=== PATIENT | male | born 1990 | race Caucasian/White ===

== ENCOUNTER 2017-02-08 12:07 | Emergency (ER) | payer SELFPAY ==
--- NOTE | 2017-02-08 12:23 | ER Document Report ---
HPI - HPI Patient complains to provider of: Right toe injury Onset: Yesterday Onset/Duration: Sudden Quality of pain: Throbbing Severity: Severe Pain Level: 5 Context: Patient states he jumped into the shallow end of pool injuring his right toes. occurred yesterday, patient is able to bear some weight on his foot but complains of pain. Associated Symptoms: None Exacerbated by: Movement, Walking Relieved by: Denies Similar symptoms previously: No Recently seen / treated by doctor: No - ROS ROS below otherwise negative: Yes Systems Reviewed and Negative: Yes All other systems reviewed and negative - CONSTITUTIONAL Constitutional: DENIES: Fever - EENT EENT: DENIES: Congestion - NEURO Neurology: DENIES: Headache - CARDIOVASCULAR Cardiovascular: DENIES: Chest pain - RESPIRATORY Respiratory: DENIES: Trouble Breathing - GASTROINTESTINAL Gastrointestinal: DENIES: Abdominal Pain - URINARY Urinary: DENIES: Dysuria - MUSCULOSKELETAL Musculoskeletal: REPORTS: Extremity pain - Right foot - DERM Skin Color: Ecchymosis Skin Problems: None <JULITA AVILA - Last Filed: 02/08/17 12:56> Past Medical History - General Information source: Patient - Social History Smoking Status: Current Every Day Smoker Cigarette use (# per day): Yes Frequency of alcohol use: Occasional Drug Abuse: None Lives with: Family Family History: DM, Hyperlipidemia, Hypertension, Malignancy Patient has suicidal ideation: No Patient has homicidal ideation: No - Medical History Medical History: Negative Surgical Hx: Negative - Immunizations Immunizations up to date: No Hx Diphtheria, Pertussis, Tetanus Vaccination: Yes <JULITA AVILA - Last Filed: 02/08/17 12:56> Vertical Provider Document - CONSTITUTIONAL Agree With Documented VS: Yes Exam Limitations: No Limitations - INFECTION CONTROL TRAVEL OUTSIDE OF THE [place] IN LAST 30 DAYS: No - HEENT HEENT: Atraumatic, Normocephalic - RESPIRATORY Respiratory: Breath Sounds Normal, No Respiratory Distress O2 Sat by Pulse Oximetry: 100 - CARDIOVASCULAR Cardiovascular: Regular Rate, Regular Rhythm - MUSCULOSKELETAL/EXTREMETIES Musculoskeletal/Extremeties: Tender, Edema, Eccymosis - Right fourth and fifth toes. - NEURO Level of Consciousness: Awake - DERM Integumentary: Warm, Dry <JULITA AVILA - Last Filed: 02/08/17 12:56> Course - Re-evaluation Re-evalutation: 02/08/17 12:57 X-rays showed fracture to proximal right fifth toe. This was discussed with patient. - Vital Signs Vital signs: Temp Pulse Resp BP Pulse Ox 97.5 F 98 18 157/88 H 100 02/08/17 12:10 02/08/17 12:10 02/08/17 12:10 02/08/17 12:10 02/08/17 12:10 <JULITA AVILA - Last Filed: 02/08/17 12:56> - Vital Signs Vital signs: Temp Pulse Resp BP Pulse Ox 97.5 F 85 16 146/88 H 99 02/08/17 12:10 02/08/17 13:23 02/08/17 13:23 02/08/17 13:23 02/08/17 13:23 <LUIS ALBERTO MARTINEZ - Last Filed: 02/09/17 14:38> Procedures - Immobilization Right Foot Pre-Proc Neuro Vasc Exam: Normal Immobilizer type: Post-op shoe Performed by: PCT Post-Proc Neuro Vasc Exam: Normal Alignment checked and good: Yes <JULITA AVILA - Last Filed: 02/08/17 12:56> Discharge <JULITA AVILA - Last Filed: 02/08/17 12:56> <LUIS ALBERTO MARTINEZ - Last Filed: 02/09/17 14:38> - Discharge Clinical Impression: Toe fracture, right Qualifiers: Encounter type: initial encounter Toe: lesser toe Fracture type: closed Phalanx : proximal Fracture alignment: nondisplaced Qualified Code(s): S92.514A - Nondisplaced fracture of proximal phalanx of right lesser toe(s), initial encounter for closed fracture Condition: Good Disposition: HOME, SELF-CARE Additional Instructions: Ice and elevate foot tylenol or Motrin as needed for pain, [place] as needed Follow-up with orthopedic for further evaluation of fractured toe return as needed Prescriptions: Hydrocodone/Acetaminophen [[place] 5-325 mg Tablet] 1 tab PO PRN PRN #15 tablet PRN Reason: Forms: Return to Work Referrals: BELINDA SAMAYOA MD [ACTIVE STAFF] - Follow up as needed
[2017-02-08 13:27] VITALS: BP 146/88
--- NOTE | 2017-02-08 13:48 | RADIOLOGY REPORT (SQ) ---
EXAM DESCRIPTION: FOOT RIGHT COMPLETE COMPLETED DATE/TIME: 02/08/2017 12:45 pm REASON FOR STUDY: injury COMPARISON: None. NUMBER OF VIEWS: Three views. TECHNIQUE: AP, lateral and oblique radiographic images acquired of the right foot. LIMITATIONS: None. FINDINGS: MINERALIZATION: Normal. BONES: There is a transverse fracture of the base of the 5th proximal phalanx. JOINTS: No effusions. SOFT TISSUES: No soft tissue swelling. No foreign body. OTHER: No other significant finding. IMPRESSION: There is a fracture of the at the base of the 5th proximal phalanx. TECHNICAL DOCUMENTATION: JOB ID: [id number] [employer]- All Rights Reserved
== END 2017-02-08 13:24 | disposition home or self-care (01) ==
LOC: ER 12:07
DX: S92.514A Nondisplaced fracture of proximal phalanx of right lesser toe(s), initial encounter for closed fracture (principal); X58.XXXA Exposure to other specified factors, initial encounter; Y93.11 Activity, swimming; F17.210 Nicotine dependence, cigarettes, uncomplicated
CPT/HCPCS: 99283

== ENCOUNTER 2018-03-05 11:20 | Inpatient (IN) | payer SELFPAY ==
[2018-03-05] MEDS ORDERED: KETOROLAC TROMETHAMINE INJ/PF 30 MG/1 ML SDV IV ONE (11:49)
[2018-03-05] MEDS ORDERED: NORMAL SALINE 1000 ML 1,000 ML IV ONE ×3 (11:49→15:43)
[2018-03-05] MEDS ORDERED: ONDANSETRON 4 MG TAB.RAPDIS SL ONE (11:49)
--- NOTE | 2018-03-05 12:05 | ER Document Report ---
ED Medical Screen (RME) - General Chief Complaint: Abdominal Pain Stated Complaint: ABDOMINAL PAIN Time Seen by Provider: 03/05/18 11:38 Mode of Arrival: Ambulatory Information source: Patient TRAVEL OUTSIDE OF THE [place] IN LAST 30 DAYS: No - HPI Patient complains to provider of: Abdominal pain with nausea and vomiting Onset: Yesterday Onset/Duration: Gradual Quality of pain: Achy, Cramping Severity: Moderate Pain Level: 3 Associated Symptoms: Nausea, Vomiting Exacerbated by: Food Relieved by: Denies Similar symptoms previously: No Recently seen / treated by doctor: No Notes: 03/05/18 12:04 Patient is a 27-year-old male with a history of daily alcohol consumption approximately 40 beers daily, presenting to the emergency room complaining of epigastric and right lower quadrant abdominal pain with nausea and vomiting that started yesterday, has a history of hernia repair when he was a baby, otherwise no abdominal surgeries, no sick contacts, no questionable food consumption at onset - Related Data Allergies/Adverse Reactions: No Known Allergies Allergy (Verified 03/05/18 11:22) Past Medical History - Social History Chew tobacco use (# tins/day): No Frequency of alcohol use: Heavy Drug Abuse: Marijuana Renal/ Medical History: Denies: Hx Peritoneal Dialysis - Immunizations Immunizations up to date: No Hx Diphtheria, Pertussis, Tetanus Vaccination: Yes Physical Exam - Vital signs Vitals: Temp Pulse Resp BP Pulse Ox 97.6 F 88 16 156/97 H 100 03/05/18 11:29 03/05/18 11:29 03/05/18 11:29 03/05/18 11:29 03/05/18 11:29 Course - Vital Signs Vital signs: Temp Pulse Resp BP Pulse Ox 97.6 F 88 16 156/97 H 100 03/05/18 11:29 03/05/18 11:29 03/05/18 11:29 03/05/18 11:29 03/05/18 11:29
[2018-03-05 12:38] LABS: HEMATOCRIT 48.3 % (37.9-51.0); HEMOGLOBIN 16.7 g/dL (13.5-17.0); MEAN CORPUSCULAR HEMOGLOBIN 30.7 pg (27.0-33.4); MEAN CORPUSCULAR HGB CONC 34.6 g/dL (32.0-36.0); MEAN CORPUSCULAR VOLUME 89 fl (80-97); PLATELET COUNT 350 10^3/uL (150-450); RED BLOOD COUNT 5.43 10^6/uL (4.35-5.55); RED CELL DISTRIBUTION WIDTH 12.8 % (11.5-14.0); WHITE BLOOD COUNT 13.6 10^3/uL (4.0-10.5)
[2018-03-05 12:42] LABS: APPEARANCE,URINE SLIGHTLY-CLOUDY; BILIRUBIN,URINE NEGATIVE (NEGATIVE); GLUCOSE, URINE NEGATIVE (NEGATIVE); KETONES,URINE 20 mg/dL (NEGATIVE); LEUKOCYTE ESTERASE,URINE NEGATIVE (NEGATIVE); NITRITE,URINE NEGATIVE (NEGATIVE); PROTEIN,URINE 100 mg/dL (NEGATIVE); URINE SPECIFIC GRAVITY 1.031
[2018-03-05 12:44] LABS: COLOR,URINE DARK YELLOW
[2018-03-05 13:02] LABS: ALANINE AMINOTRANSFERASE 81 U/L (21-72); ALKALINE PHOSPHATASE 99 U/L (38-126); ANION GAP 18 (5-19); ASPARTATE AMINO TRANSFERASE 55 U/L (17-59); BILIRUBIN,DIRECT 0.4 mg/dL (0.0-0.4); BILIRUBIN,TOTAL 1.3 mg/dL (0.2-1.3); BLOOD UREA NITROGEN 13 mg/dL (7-20); CALCIUM 10.3 mg/dL (8.4-10.2); CARBON DIOXIDE 28 mmol/L (22-30); CHLORIDE 98 mmol/L (98-107); GLUCOSE 125 mg/dL (75-110); TOTAL PROTEIN 9.3 g/dL (6.3-8.2)
[2018-03-05 13:13] LABS: ABSOLUTE MONOCYTES # (MANUAL) 0.8 10^3/uL (0.1-1.4); ABSOLUTE NEUTROPHILS# (MANUAL) 11.8 10^3/uL (1.7-8.2); BASOPHILS % (MANUAL) 0 % (0-2); EOSINOPHILS % (MANUAL) 0 % (0-6); LYMPHOCYTES % (MANUAL) 7 % (13-45); MONOCYTES % (MANUAL) 6 % (3-13); PLATELET COMMENT ADEQUATE; RBC MORPHOLOGY COMMENT NORMO-CYTIC/CHROMIC; SEGMENTED NEUTROPHILS % (MAN) 87 % (42-78); TOTAL CELLS COUNTED 100; TOXIC GRANULATION SLIGHT; TOXIC VACUOLATION PRESENT
[2018-03-05] MEDS ORDERED: HYDROMORPHONE HCL INJ/PF 2 MG/ML AMPULE IV ONE ×2 (14:11→16:05)
[2018-03-05] MEDS ORDERED: METOCLOPRAMIDE HCL INJ/PF 10 MG/2 ML SDV IV ONE (14:11)
--- NOTE | 2018-03-05 14:11 | ER Document Report ---
ED GI/ - General Mode of Arrival: Ambulatory Information source: Patient TRAVEL OUTSIDE OF THE [place] IN LAST 30 DAYS: No <DARRIUS BAKER - Last Filed: 03/05/18 14:49> <TEENA FELIZ - Last Filed: 03/05/18 16:11> - General Chief Complaint: Abdominal Pain Stated Complaint: ABDOMINAL PAIN Time Seen by Provider: 03/05/18 11:38 Notes: 27-year-old male with history of EtOH abuse that presents today with complaints of epigastric abdominal pain. Patient states he has had symptoms like this in the past but not as severe as today. Patient states he drinks a "couple of 40 ounce beers a day". Patient also admits to smoking marijuana. Patient states his pain began yesterday and became worse today. (DARRIUS BAKER) The patient has been vomiting this morning. At this time he does have some shakes, difficult to tell if it is due to his pain or EtOH withdrawal. (TEENA FELIZ) - Related Data Allergies/Adverse Reactions: No Known Allergies Allergy (Verified 03/05/18 11:22) Past Medical History - General Information source: Patient - Social History Smoking Status: Current Every Day Smoker Cigarette use (# per day): Yes Chew tobacco use (# tins/day): No Frequency of alcohol use: Heavy Drug Abuse: Marijuana Lives with: Family Family History: DM, Hyperlipidemia, Hypertension, Malignancy Patient has suicidal ideation: No Patient has homicidal ideation: No Renal/ Medical History: Denies: Hx Peritoneal Dialysis - Immunizations Immunizations up to date: No Hx Diphtheria, Pertussis, Tetanus Vaccination: Yes <DARRIUS BAKER - Last Filed: 03/05/18 14:49> Review of Systems - Review of Systems Constitutional: No symptoms reported EENT: No symptoms reported Cardiovascular: No symptoms reported Respiratory: No symptoms reported Gastrointestinal: See HPI, Abdominal pain Genitourinary: No symptoms reported Male Genitourinary: No symptoms reported Musculoskeletal: No symptoms reported Skin: No symptoms reported Hematologic/Lymphatic: No symptoms reported Neurological/Psychological: No symptoms reported -: Yes All other systems reviewed and negative <DARRIUS BAKER - Last Filed: 03/05/18 14:49> Physical Exam <DARRIUS BAKER - Last Filed: 03/05/18 14:49> <TEENA FELIZ - Last Filed: 03/05/18 16:11> - Vital signs Vitals: Temp Pulse Resp BP Pulse Ox 97.6 F 88 16 156/97 H 100 03/05/18 11:29 03/05/18 11:29 03/05/18 11:29 03/05/18 11:29 03/05/18 11:29 - Notes Notes: Physical Exam: General: Alert, appears well shaking. HEENT: Normocephalic. Atraumatic. PERRL. Extraocular movements intact. Oropharynx clear. Neck: Supple. Non-tender. Respiratory: No respiratory distress. Clear and equal breath sounds bilaterally. Cardiovascular: Regular rate and rhythm. Abdominal: Epigastric and right upper quadrant tenderness with palpation, mild guarding. No distension. Normal Bowel Sounds. Back: Non-tender. No deformity or step off. Extremities: Moves all four extremities. Upper extremities: Normal inspection. Normal ROM. Lower extremities: Normal inspection. No edema. Normal ROM. Neurological: Normal cognition. AAOx4. Normal speech. Psychological: Normal affect. Normal Mood. Skin: Warm. Dry. Normal color. (DARRIUS BAKER) Course - Laboratory Result Diagrams: 03/05/18 11:55 03/05/18 11:55 <DARRIUS BAKER - Last Filed: 03/05/18 14:49> - Laboratory Result Diagrams: 03/05/18 11:55 03/05/18 11:55 - Diagnostic Test Radiology reviewed: Reports reviewed - Gallbladder ultrasound shows fatty infiltration of the liver, the pancreas is not well-visualized, and no abnormalities of the gallbladder were seen. - Consults NICOLAS Winn Time consulted: 16:05 Consulted provider: will come to ER <TEENA FELIZ - Last Filed: 03/05/18 16:11> - Vital Signs Vital signs: Temp Pulse Resp BP Pulse Ox 97.6 F 88 16 156/97 H 100 03/05/18 11:29 03/05/18 11:29 03/05/18 11:29 03/05/18 11:29 03/05/18 11:29 - Laboratory Laboratory results interpreted by me: 03/05/18 03/05/18 03/05/18 11:55 11:55 11:55 WBC 13.6 H Seg Neuts % (Manual) 87 H Lymphocytes % (Manual) 7 L Abs Neuts (Manual) 11.8 H Glucose 125 H Calcium 10.3 H ALT 81 H Total Protein 9.3 H Lipase 9889.0 H Urine Protein 100 H Urine Ketones 20 H Urine Urobilinogen 2.0 H Discharge <DARRIUS BAKER - Last Filed: 03/05/18 14:49> - Discharge Admitting Provider: Hospitalist Unit Admitted: Telemetry <TEENA FELIZ - Last Filed: 03/05/18 16:11> - Discharge Clinical Impression: Pancreatitis, alcoholic, acute Qualifiers: Acute pancreatitis complication: no infection or necrosis Qualified Code(s): K85.20 - Alcohol induced acute pancreatitis without necrosis or infection Condition: Stable Disposition: ADMITTED INPATIENT Scribe Attestation: 03/05/18 14:15 I personally performed the services described in the documentation, reviewed and edited the documentation which was dictated to the scribe in my presence, and it accurately records my words and actions. (TEENA FELIZ) Scribe Documentation - Scribe Written by Arturoe:: Fidelina Da Silva, 03/05/2018 1451 acting as scribe for :: Romulo <DARRIUS BAKER - Last Filed: 03/05/18 14:49>
--- NOTE | 2018-03-05 15:46 | RADIOLOGY REPORT (SQ) ---
EXAM DESCRIPTION: U/S ABDOMEN LIMITED W/O DOP COMPLETED DATE/TIME: 03/05/2018 3:37 pm REASON FOR STUDY: New onset pancreatitis, ETOH abuse COMPARISON: None. TECHNIQUE: Dynamic and static grayscale images acquired of the right upper quadrant and recorded on PACS. Additional selected color Doppler and spectral images recorded. LIMITATIONS: Study limited due to acoustical interference from fat or from air in the bowel. FINDINGS: PANCREAS: Not adequately visualized. LIVER: Echotexture is coarse with increased echogenicity consistent with fatty infiltration. No mass es. LIVER VASCULATURE: Normal directional flow of the main portal vein and hepatic veins. GALLBLADDER: No stones. Normal wall thickness. No pericholecystic fluid. ULTRASOUND-DETECTED ROMEO'S SIGN: Negative. INTRAHEPATIC DUCTS AND COMMON DUCT: CBD and intrahepatic ducts normal caliber. No filling defects. INFERIOR VENA CAVA: Normal flow. AORTA: Not visualized. RIGHT KIDNEY: Normal size. Normal echogenicity. No solid or suspicious masses. No hydronephrosis. No calcifications. PERITONEAL CAVITY AND RIGHT PLEURAL SPACE: No ascites or effusions. OTHER: No other significant finding. IMPRESSION: LIMITED STUDY. PANCREAS NOT ADEQUATELY VISUALIZED. DIFFUSE FATTY INFILTRATION OF THE L IVER. NO OTHER SIGNIFICANT FINDINGS. TECHNICAL DOCUMENTATION: JOB ID: [id number] [employer]- All Rights Reserved Reading location - IP/workstation name: [email or web address]
[2018-03-05 16:06] LABS: TRIGLYCERIDES 49 mg/dL (<150)
[2018-03-05] MEDS ORDERED: ONDANSETRON HCL INJ/PF 4 MG/2 ML SDV IV PRN (17:13)
[2018-03-05] MEDS ORDERED: NORMAL SALINE 1000 ML 1,000 ML IV PRN (17:13)
[2018-03-05] MEDS ORDERED: ACETAMINOPHEN 325 MG TABLET PO PRN (17:13)
[2018-03-05] MEDS ORDERED: PROMETHAZINE HCL INJ 25 MG/1 ML VIAL IV PRN (17:13)
[2018-03-05] MEDS ORDERED: DIAZEPAM 5 MG TABLET PO PRN (17:19)
[2018-03-05] MEDS ORDERED: HYDRALAZINE HCL INJ/PF 20 MG/1 ML SDV IV PRN (17:30)
[2018-03-05] MEDS ORDERED: NICOTINE 14 MG/24 HR PATCH.TD24 TD SCH (17:30)
--- NOTE | 2018-03-05 17:39 | PDOC H&P ---
History of Present Illness Patient complains of: Abd pain, nausea and vomiting History of Present Illness: QUINTIN COLEMAN II is a 27 year old male with no significant past medical history who presented to the emergency department today with a complaint of 3 days of epigastric abdominal pain that worsens with p.o. intake and intractable nausea and vomiting (7 episodes of emesis today). The patient reports that he is a heavy alcohol drinker; minimum 12 pack of beer daily, with last alcohol intake being half his normal daily use yesterday evening. He denies fever, chills, chest pain, palpitations, diarrhea. He does endorse dyspnea related to increased abdominal pain. Evaluation in the emergency department revealed leukocytosis (WBCs 13 K), elevated lipase (>9k), serum alcohol <10, and abdominal ultrasound which revealed fatty liver infiltration, was negative for cholelithiasis, but was unable to visualize the pancreas secondary to air in bowels. The patient is noted to be hypertensive and tremulous. He is referred to the hospitalist service for admission and management of alcoholic pancreatitis and withdrawal. Past Medical History Medical History: None Past Surgical History Past Surgical History: Reports: Herniorrhaphy Social History Information Source: Patient Lives with: Family Smoking Status: Current Every Day Smoker Cigarettes Packs Per Day: 0.5 Number of Years Smokin Frequency of Alcohol Use: Heavy Amount of Alcoholic Beverages Per Day: 12 pack minimum Last Alcohol Use: 03/04/18 Hx Recreational Drug Use: Yes Drugs: Marijuana Hx Prescription Drug Abuse: No - Advance Directive Resuscitation Status: Full Code Surrogate healthcare decision maker:: The patient's mother, Rosa Longo, Family History Family History: DM, Hyperlipidemia, Hypertension, Malignancy Parental Family History Reviewed: Yes Children Family History Reviewed: NA Sibling(s) Family History Reviewed.: Yes Medication/Allergy Home Medications: No Home Medications 03/05/18 Allergies/Adverse Reactions: No Known Allergies Allergy (Verified 03/05/18 11:22) Review of Systems Constitutional: ABSENT: chills, fever(s), headache(s), weight gain, weight loss Eyes: ABSENT: visual disturbances Ears: ABSENT: hearing changes Cardiovascular: ABSENT: chest pain, dyspnea on exertion, edema, orthropnea, palpitations Respiratory: ABSENT: cough, hemoptysis Gastrointestinal: PRESENT: abdominal pain, bloating, nausea, vomiting. ABSENT: constipation, diarrhea, hematemesis, hematochezia Genitourinary: ABSENT: dysuria, hematuria Musculoskeletal: ABSENT: joint swelling Integumentary: ABSENT: rash, wounds Neurological: PRESENT: tremor(s). ABSENT: abnormal gait, abnormal speech, confusion, dizziness, focal weakness, syncope Psychiatric: ABSENT: anxiety, depression, homidical ideation, suicidal ideation Endocrine: ABSENT: cold intolerance, heat intolerance, polydipsia, polyuria Hematologic/Lymphatic: ABSENT: easy bleeding, easy bruising Physical Exam Vital Signs: Temp Pulse Resp BP Pulse Ox 97.6 F 88 16 156/97 H 100 03/05/18 11:29 03/05/18 11:29 03/05/18 11:29 03/05/18 11:29 03/05/18 11:29 Intake & Output 03/04/18 03/05/18 03/06/18 06:59 06:59 06:59 Weight 94.9 kg General appearance: PRESENT: no acute distress, cooperative, well-developed, well-nourished, other - Overweight Head exam: PRESENT: atraumatic, normocephalic Eye exam: PRESENT: conjunctiva pink, EOMI, PERRLA. ABSENT: scleral icterus Ear exam: PRESENT: normal external ear exam Mouth exam: PRESENT: moist, tongue midline Neck exam: ABSENT: carotid bruit, JVD, lymphadenopathy, thyromegaly Respiratory exam: PRESENT: clear to auscultation ayush, symmetrical, unlabored. ABSENT: rales, rhonchi, wheezes Cardiovascular exam: PRESENT: RRR, +S1, +S2. ABSENT: diastolic murmur, rubs, systolic murmur Pulses: PRESENT: normal dorsalis pedis pul Vascular exam: PRESENT: normal capillary refill GI/Abdominal exam: PRESENT: distended, hypoactive bowel sounds, soft, tenderness. ABSENT: guarding, mass, organolmegaly, rebound Rectal exam: PRESENT: deferred Extremities exam: PRESENT: full ROM. ABSENT: calf tenderness, clubbing, pedal edema Neurological exam: PRESENT: alert, awake, oriented to person, oriented to place , oriented to time, oriented to situation, CN II-XII grossly intact. ABSENT: motor sensory deficit Psychiatric exam: PRESENT: appropriate affect, normal mood. ABSENT: homicidal ideation, suicidal ideation Skin exam: PRESENT: dry, intact, warm. ABSENT: cyanosis, rash Results Laboratory Results: 03/05/18 11:55 03/05/18 11:55 03/05/18 03/05/18 03/05/18 11:55 11:55 11:55 WBC 13.6 H RBC 5.43 Hgb 16.7 Hct 48.3 MCV 89 MCH 30.7 MCHC 34.6 RDW 12.8 Plt Count 350 Seg Neutrophils % Not Reportable Lymphocytes % Not Reportable Monocytes % Not Reportable Eosinophils % Not Reportable Basophils % Not Reportable Absolute Neutrophils Not Reportable Absolute Lymphocytes Not Reportable Absolute Monocytes Not Reportable Absolute Eosinophils Not Reportable Absolute Basophils Not Reportable Sodium 144.0 Potassium 5.0 Chloride 98 Carbon Dioxide 28 Anion Gap 18 BUN 13 Creatinine 0.59 Est GFR ( Amer) > 60 Est GFR (Non-Af Amer) > 60 Glucose 125 H Calcium 10.3 H Total Bilirubin 1.3 AST 55 ALT 81 H Alkaline Phosphatase 99 Total Protein 9.3 H Albumin 5.0 Triglycerides Lipase 9889.0 H Urine Color DARK YELLOW Urine Appearance SLIGHTLY-CLOUDY Urine pH 6.0 Ur Specific [place] 1.031 Urine Protein 100 H Urine Glucose (UA) NEGATIVE Urine Ketones 20 H Urine Blood NEGATIVE Urine Nitrite NEGATIVE Ur Leukocyte Esterase NEGATIVE Urine WBC (Auto) 1 Urine RBC (Auto) 2 03/05/18 11:55 WBC RBC Hgb Hct MCV MCH MCHC RDW Plt Count Seg Neutrophils % Lymphocytes % Monocytes % Eosinophils % Basophils % Absolute Neutrophils Absolute Lymphocytes Absolute Monocytes Absolute Eosinophils Absolute Basophils Sodium Potassium Chloride Carbon Dioxide Anion Gap BUN Creatinine Est GFR ( Amer) Est GFR (Non-Af Amer) Glucose Calcium Total Bilirubin AST ALT Alkaline Phosphatase Total Protein Albumin Triglycerides 49 Lipase Urine Color Urine Appearance Urine pH Ur Specific [place] Urine Protein Urine Glucose (UA) Urine Ketones Urine Blood Urine Nitrite Ur Leukocyte Esterase Urine WBC (Auto) Urine RBC (Auto) Impressions: Abdomen Ultrasound 03/05/18 14:12 IMPRESSION: LIMITED STUDY. PANCREAS NOT ADEQUATELY VISUALIZED. DIFFUSE FATTY INFILTRATION OF THE LIVER. NO OTHER SIGNIFICANT FINDINGS. Assessment & Plan - Diagnosis (1) Pancreatitis, alcoholic, acute Qualifiers: Acute pancreatitis complication: unspecified Qualified Code(s): K85.20 - Alcohol induced acute pancreatitis without necrosis or infection Is this a current diagnosis for this admission?: Yes Plan: The patient is admitted with 3 days of epigastric abdominal pain relating to his back, worsened by p.o. intake, and associated with nausea and vomiting. Lipase > 9K WBCs 13 K Abdominal ultrasound was negative for cholelithiasis but unable to visualize pancreas secondary to bowel gas pattern. Patient is admitted to the medical floor on continuous cardiac telemetry. He has already received 2 L NS bolus; will continue to provide maintenance IV fluids. He is n.p.o. with the exception of sips and ice chips. Analgesics and antiemetics as needed. Pt is afebrile, no indication for antibiotics at this time. Consider CT imaging if he becomes febrile. (2) Alcohol withdrawal Qualifiers: Complication of substance-induced condition: uncomplicated Qualified Code(s ): F10.230 - Alcohol dependence with withdrawal, uncomplicated Is this a current diagnosis for this admission?: Yes Plan: Last alcohol intake 03/04/18. No previous history of alcohol withdrawal or seizures. We will monitor on continuous cardiac telemetry. Scheduled Valium 5 mg p.o. every 6 if tolerating p.o.; Ativan 2 mg IV as needed for anxiety, agitation, withdrawal symptoms. Banana bag nightly. Fall, seizure, aspiration precautions. (3) Hypertension Is this a current diagnosis for this admission?: Yes Plan: Secondary to alcohol withdrawal and pain. We will manage pancreatitis and alcohol withdrawal as above. IV hydralazine as needed for blood pressure control. (4) Nausea and vomiting Is this a current diagnosis for this admission?: Yes Plan: Secondary to acute alcoholic pancreatitis. N.p.o. with the exception of ice chips and sips of water. IV antiemetics as needed. (5) Abdominal pain Qualifiers: Abdominal location: epigastric Qualified Code(s): R10.13 - Epigastric pain Is this a current diagnosis for this admission?: Yes Plan: Secondary to acute alcoholic pancreatitis. IV Dilaudid and Toradol as needed for pain. (6) Continuous tobacco abuse Is this a current diagnosis for this admission?: Yes Plan: Smoking cessation is encouraged; nicotine replacement therapy is provided. (7) Alcohol abuse Is this a current diagnosis for this admission?: Yes Plan: The patient endorses drinking at least a 12 pack of beer daily. He does express a desire to obtain sobriety. We will ask the materials planner to assess needs and provide the patient with community resources. - Time Time Spent: 30 to 50 Minutes Smoking Cessation Education: 3 to 10 minutes Medications reviewed and adjusted accordingly: Yes Anticipated discharge: Home - Inpatient Certification Based on my medical assessment, after consideration of the patient's comorbidities, presenting symptoms, or acuity I expect that the services needed warrant INPATIENT care.: Yes I certify that my determination is in accordance with my understanding of Medicare's requirements for reasonable and necessary INPATIENT services [42 CFR 412.3e].: Yes Medical Necessity: Need Close Monitoring Due to Risk of Patient Decompensation, Need For IV Fluids, Need For Continuous Telemetry Monitoring, Need for Pain Control
[2018-03-05] MEDS ORDERED: GLUCAGON,HUMAN RECOMB 1 MG INJ IM PRN (17:40)
[2018-03-05] MEDS ORDERED: DEXTROSE 40% GEL 15 GM TUBE PO PRN ×2 (17:40)
[2018-03-05] MEDS ORDERED: DEXTROSE 50%-WATER 25 GM/50 ML DISP.SYRIN IV PRN ×2 (17:40)
[2018-03-05] MEDS ORDERED: NICOTINE 14 MG/24 HR PATCH.TD24 TD ONE (18:00)
[2018-03-05] MEDS: NORMAL SALINE 1000 ML 1,000 ML with POTASSIUM CHLORIDE 20 MEQ, MAGNESIUM SULFATE 8 MEQ,... IV SCH ×5 (20:42)
[2018-03-05] MEDS: HYDROMORPHONE HCL INJ/PF 2 MG/ML AMPULE IV PRN (20:43)
[2018-03-05] MEDS: HEPARIN SOD (PORCINE) 5,000 UNIT/ML 1 ML SYRINGE SUBCUT SCH (21:53)
[2018-03-05] MEDS: PANTOPRAZOLE SODIUM 40 MG VIAL IV SCH (21:53)
[2018-03-06] MEDS: HYDROMORPHONE HCL INJ/PF 2 MG/ML AMPULE IV PRN ×7 (01:07→23:31)
[2018-03-06] MEDS: LORAZEPAM INJ 2 MG/1 ML VIAL IV PRN ×2 (03:04)
[2018-03-06] MEDS: HEPARIN SOD (PORCINE) 5,000 UNIT/ML 1 ML SYRINGE SUBCUT SCH ×3 (05:18→21:20)
[2018-03-06 05:42] LABS: ALANINE AMINOTRANSFERASE 51 U/L (21-72); ALBUMIN 3.5 g/dL (3.5-5.0); ALKALINE PHOSPHATASE 76 U/L (38-126); ANION GAP 12 (5-19); ASPARTATE AMINO TRANSFERASE 29 U/L (17-59); BILIRUBIN,DIRECT 0.4 mg/dL (0.0-0.4); BILIRUBIN,TOTAL 1.1 mg/dL (0.2-1.3); BLOOD UREA NITROGEN 5 mg/dL (7-20); CALCIUM 8.8 mg/dL (8.4-10.2); CARBON DIOXIDE 23 mmol/L (22-30); CHLORIDE 103 mmol/L (98-107); GLUCOSE 92 mg/dL (75-110); POTASSIUM 4.3 mmol/L (3.6-5.0); SODIUM 138.4 mmol/L (137-145); TOTAL PROTEIN 6.9 g/dL (6.3-8.2)
[2018-03-06 06:30] LABS: ABSOLUTE EOSINOPHILS # (AUTO) 0.1 10^3/uL (0.0-0.6); ABSOLUTE LYMPHOCYTES (AUTO) 1.1 10^3/uL (0.5-4.7); ABSOLUTE MONOCYTES (AUTO) 1.3 10^3/uL (0.1-1.4); BASOPHILS % (AUTO) 0.2 % (0-2); EOSINOPHILS % (AUTO) 0.5 % (0-6); HEMATOCRIT 43.3 % (37.9-51.0); LYMPHOCYTES % (AUTO) 7.6 % (13-45); MEAN CORPUSCULAR HEMOGLOBIN 30.5 pg (27.0-33.4); MEAN CORPUSCULAR HGB CONC 34.1 g/dL (32.0-36.0); MEAN CORPUSCULAR VOLUME 90 fl (80-97); MONOCYTES % (AUTO) 8.7 % (3-13); PLATELET COUNT 243 10^3/uL (150-450); RED BLOOD COUNT 4.84 10^6/uL (4.35-5.55); RED CELL DISTRIBUTION WIDTH 13.1 % (11.5-14.0); TOTAL CELLS COUNTED % (AUTO) 100 %; WHITE BLOOD COUNT 14.5 10^3/uL (4.0-10.5)
[2018-03-06 06:31] LABS: LIPASE 5703.4 U/L (23-300)
[2018-03-06 06:37] LABS: HEMOGLOBIN 14.8 g/dL (13.5-17.0)
[2018-03-06] MEDS: NICOTINE 14 MG/24 HR PATCH.TD24 TD SCH (09:46)
[2018-03-06] MEDS: KETOROLAC TROMETHAMINE INJ/PF 30 MG/1 ML SDV IV PRN ×2 (09:47→19:49)
[2018-03-06] MEDS: PANTOPRAZOLE SODIUM 40 MG VIAL IV SCH ×2 (09:47→21:22)
[2018-03-06] MEDS ORDERED: INSULIN LISPRO 100 UNIT/ML 3 ML VIAL SUBCUT PRN (11:17)
[2018-03-06] MEDS: DIAZEPAM 5 MG TABLET PO SCH ×3 (11:18→23:31)
[2018-03-06] MEDS ORDERED: PROMETHAZINE HCL INJ 25 MG/1 ML VIAL IV PRN (11:30)
[2018-03-06] MEDS ORDERED: ONDANSETRON HCL INJ/PF 4 MG/2 ML SDV IV PRN (11:30)
--- NOTE | 2018-03-06 14:30 | PDOC PROGRESS REPORT ---
Subjective Progress Note for:: 03/06/18 Subjective:: The patient is a 27-year-old male with past medical history significant for alcohol and tobacco abuse with continuous use who was admitted yesterday for alcoholic pancreatitis and alcohol withdrawal. Patient is seen on morning rounds today. He is found resting in bed comfortably on room air. He reports his nausea and vomiting have resolved without antiemetics; currently tolerating ice chips and small sips of water only without difficulty. He does continue to have epigastric abdominal pain radiates bilaterally to his back is worsened by sudden movements, deep breaths, and when taking p.o. medications. He reports that his current pain medication regimen provides adequate pain relief but wears off after approximately an hour and half. He requests half the dose frequency increased if possible. He asks me to look at his abdomen; reporting that he had a tick embedded for an unknown length of time that he removed at home approximately 3 weeks ago. He has now developed an erythematous rash surrounding the tick site. He denies pain and itching. He is concerned about possible Lyme's disease; denies headaches, malaise, fever, arthralgias or rashes to other areas on his body. Otherwise, he has no new questions or concerns. Reason For Visit: PANCREATITIS, ALCOHOL WITHDRAWAL Physical Exam Vital Signs: Temp Pulse Resp BP Pulse Ox 98.0 F 122 H 20 144/94 H 98 03/06/18 11:00 03/06/18 11:00 03/06/18 11:00 03/06/18 11:00 03/06/18 11:00 Intake & Output 03/05/18 03/06/18 03/07/18 06:59 06:59 06:59 Intake Total 1450 Balance 1450 Weight 102.5 kg General appearance: PRESENT: well-developed, well-nourished, other - Overweight. Acutely ill-appearing. Head exam: PRESENT: atraumatic, normocephalic Eye exam: PRESENT: conjunctiva pink, EOMI, PERRLA. ABSENT: scleral icterus Ear exam: PRESENT: normal external ear exam Mouth exam: PRESENT: moist, tongue midline Neck exam: ABSENT: carotid bruit, JVD, lymphadenopathy, thyromegaly Respiratory exam: PRESENT: clear to auscultation ayush, symmetrical, unlabored. ABSENT: rales, rhonchi, wheezes Cardiovascular exam: PRESENT: RRR, tachycardia. ABSENT: diastolic murmur, rubs , systolic murmur Pulses: PRESENT: normal dorsalis pedis pul Vascular exam: PRESENT: normal capillary refill GI/Abdominal exam: PRESENT: hypoactive bowel sounds, soft, tenderness. ABSENT: distended, guarding, mass, organolmegaly, rebound Rectal exam: PRESENT: deferred Extremities exam: PRESENT: full ROM. ABSENT: calf tenderness, clubbing, pedal edema Neurological exam: PRESENT: alert, awake, oriented to person, oriented to place , oriented to time, oriented to situation, CN II-XII grossly intact. ABSENT: motor sensory deficit Psychiatric exam: PRESENT: appropriate affect, normal mood. ABSENT: homicidal ideation, suicidal ideation Skin exam: PRESENT: dry, intact, rash - 14 cm x 6 cm, round, erythematous, rash without central clearing to lower left abdomen; small pustule noted to the anterior that patient reports was site of embeded tick, warm. ABSENT: cyanosis Additional comments: Tremulous voice, hand tremor, diaphoretic, pale, restless. Results Laboratory Results: 03/06/18 04:15 03/06/18 04:15 03/06/18 03/06/18 04:15 04:15 WBC 14.5 H RBC 4.84 Hgb 14.8 Hct 43.3 MCV 90 MCH 30.5 MCHC 34.1 RDW 13.1 Plt Count 243 Seg Neutrophils % 83.0 H Lymphocytes % 7.6 L Monocytes % 8.7 Eosinophils % 0.5 Basophils % 0.2 Absolute Neutrophils 12.0 H Absolute Lymphocytes 1.1 Absolute Monocytes 1.3 Absolute Eosinophils 0.1 Absolute Basophils 0.0 Sodium 138.4 Potassium 4.3 Chloride 103 Carbon Dioxide 23 Anion Gap 12 BUN 5 L Creatinine 0.57 Est GFR ( Amer) > 60 Est GFR (Non-Af Amer) > 60 Glucose 92 Calcium 8.8 Total Bilirubin 1.1 AST 29 ALT 51 Alkaline Phosphatase 76 Total Protein 6.9 Albumin 3.5 Lipase 5703.4 H Impressions: Abdomen Ultrasound 03/05/18 14:12 IMPRESSION: LIMITED STUDY. PANCREAS NOT ADEQUATELY VISUALIZED. DIFFUSE FATTY INFILTRATION OF THE LIVER. NO OTHER SIGNIFICANT FINDINGS. Assessment & Plan - Diagnosis (1) Pancreatitis, alcoholic, acute Qualifiers: Acute pancreatitis complication: unspecified Qualified Code(s): K85.20 - Alcohol induced acute pancreatitis without necrosis or infection Is this a current diagnosis for this admission?: Yes Plan: Improving. The patient is admitted with 3 days of epigastric abdominal pain relating to his back, worsened by p.o. intake, and associated with nausea and vomiting. Lipase trending down; 9889--> 5703 WBCs increased slightly to 14.5 Abdominal ultrasound was negative for cholelithiasis but unable to visualize pancreas secondary to bowel gas pattern. Patient is admitted to the medical floor on continuous cardiac telemetry. Continue to provide aggressive IV fluids. He is n.p.o. with the exception of sips of water and ice chips. Analgesics and antiemetics as needed. Pt is afebrile (TMax 99.1), no indication for antibiotics at this time. Consider CT imaging if he becomes febrile. (2) Alcohol withdrawal Qualifiers: Complication of substance-induced condition: uncomplicated Qualified Code(s ): F10.230 - Alcohol dependence with withdrawal, uncomplicated Is this a current diagnosis for this admission?: Yes Plan: Increased evidence of withdrawal today; tachycardia, hypertension, tremor, diaphoresis. Last alcohol intake 03/04/18. No previous history of alcohol withdrawal or seizures. We will monitor on continuous cardiac telemetry. Scheduled Valium 5 mg p.o. every 6 if tolerating p.o.; Ativan 2 mg IV as needed for anxiety, agitation, withdrawal symptoms. Banana bag nightly. Fall, seizure, aspiration precautions. (3) Hypertension Is this a current diagnosis for this admission?: Yes Plan: Secondary to alcohol withdrawal and pain. We will manage pancreatitis and alcohol withdrawal as above. IV hydralazine as needed for blood pressure control. (4) Nausea and vomiting Is this a current diagnosis for this admission?: Yes Plan: Improved. Secondary to acute alcoholic pancreatitis. N.p.o. with the exception of ice chips and sips of water, hopefully will be able to advance to clears tomorrow. IV antiemetics as needed. (5) Abdominal pain Qualifiers: Abdominal location: epigastric Qualified Code(s): R10.13 - Epigastric pain Is this a current diagnosis for this admission?: Yes Plan: Secondary to acute alcoholic pancreatitis. IV Dilaudid and Toradol as needed for pain. (6) Continuous tobacco abuse Is this a current diagnosis for this admission?: Yes Plan: Smoking cessation is encouraged; nicotine replacement therapy is provided. (7) Alcohol abuse Is this a current diagnosis for this admission?: Yes Plan: The patient endorses drinking at least a 12 pack of beer daily. He does express a desire to obtain sobriety. We will ask the media planner / buyer to assess needs and provide the patient with community resources. (8) Tick bite of abdomen Qualifiers: Encounter type: initial encounter Qualified Code(s): S30.861A - Insect bite (nonvenomous) of abdominal wall, initial encounter; W57.XXXA - Bitten or stung by nonvenomous insect and other nonvenomous arthropods, initial encounter ; W57.XXXA - Bitten or stung by nonvenomous insect and other nonvenomous arthropods, initial encounter Is this a current diagnosis for this admission?: Yes Plan: Doxycycline IV twice daily while npo secondary to GI upset with po doxycyclin. Will need 14 days of abx treatment. - Time Time Spent with patient: 25-34 minutes Medications reviewed and adjusted accordingly: Yes Anticipated discharge: Home
[2018-03-06] MEDS: NORMAL SALINE 1000 ML 1,000 ML with POTASSIUM CHLORIDE 20 MEQ, MAGNESIUM SULFATE 8 MEQ,... IV SCH ×5 (19:52)
[2018-03-06] MEDS: DOXYCYCLINE HYCLATE 100 MG in DEXTROSE 5%-WATER 250 ML IV SCH (21:21)
[2018-03-07 04:36] LABS: HEMATOCRIT 38.8 % (37.9-51.0); HEMOGLOBIN 13.4 g/dL (13.5-17.0); MEAN CORPUSCULAR HGB CONC 34.6 g/dL (32.0-36.0); MEAN CORPUSCULAR VOLUME 90 fl (80-97); PLATELET COUNT 196 10^3/uL (150-450); RED BLOOD COUNT 4.33 10^6/uL (4.35-5.55); RED CELL DISTRIBUTION WIDTH 12.9 % (11.5-14.0); WHITE BLOOD COUNT 12.2 10^3/uL (4.0-10.5)
[2018-03-07 04:58] LABS: ANION GAP 11 (5-19); BLOOD UREA NITROGEN 7 mg/dL (7-20); CALCIUM 8.3 mg/dL (8.4-10.2); CARBON DIOXIDE 22 mmol/L (22-30); CHLORIDE 102 mmol/L (98-107); GLUCOSE 81 mg/dL (75-110); LIPASE 1900.3 U/L (23-300); SODIUM 134.9 mmol/L (137-145)
[2018-03-07] MEDS: HYDROMORPHONE HCL INJ/PF 2 MG/ML AMPULE IV PRN ×2 (05:19→08:21)
[2018-03-07] MEDS: HEPARIN SOD (PORCINE) 5,000 UNIT/ML 1 ML SYRINGE SUBCUT SCH ×3 (05:19→21:58)
[2018-03-07] MEDS: DIAZEPAM 5 MG TABLET PO SCH ×4 (05:19→21:58)
[2018-03-07] MEDS ORDERED: OXYCODONE-ACETAMINOPHEN 5-325 MG TABLET PO PRN ×2 (08:27)
[2018-03-07] MEDS ORDERED: HYDROMORPHONE HCL INJ/PF 2 MG/ML AMPULE IV PRN (08:28)
[2018-03-07] MEDS: DOXYCYCLINE HYCLATE 100 MG in DEXTROSE 5%-WATER 250 ML IV SCH ×2 (11:10→21:58)
[2018-03-07] MEDS: NICOTINE 14 MG/24 HR PATCH.TD24 TD SCH (11:11)
[2018-03-07] MEDS: PANTOPRAZOLE SODIUM 40 MG VIAL IV SCH ×2 (11:12→21:58)
[2018-03-07] MEDS ORDERED: OXYCODONE HCL IR 5 MG TABLET PO PRN (16:50)
[2018-03-07] MEDS: OXYCODONE HCL IR 5 MG TABLET PO PRN ×2 (17:12→21:59)
--- NOTE | 2018-03-07 20:25 | PDOC PROGRESS REPORT ---
Subjective Progress Note for:: 03/07/18 Subjective:: The patient is a 27-year-old male with past medical history significant for alcohol and tobacco abuse with continuous use who was admitted yesterday for alcoholic pancreatitis and alcohol withdrawal. Patient is seen on morning rounds today. He is found resting in bed comfortably on room air. He reports his nausea and vomiting have resolved without antiemetics; and he is pleased to report that he tolerated his clear liquid breakfast very well this morning. We discussed transition to p.o. analgesics today and advancing diet as tolerated. Likely will be able to discharge patient home tomorrow. He has no other questions or concerns at this time. No concerns per nursing. Reason For Visit: PANCREATITIS, ALCOHOL WITHDRAWAL Physical Exam Vital Signs: Temp Pulse Resp BP Pulse Ox 98.5 F 97 16 141/82 H 98 03/07/18 15:00 03/07/18 15:00 03/07/18 15:00 03/07/18 15:00 03/07/18 15:00 Intake & Output 03/06/18 03/07/18 03/08/18 06:59 06:59 06:59 Intake Total 1450 3475 950 Output Total 1 Balance 1450 3474 950 Weight 102.5 kg 104.9 kg General appearance: PRESENT: no acute distress, well-developed, well-nourished, other - Overweight Head exam: PRESENT: atraumatic, normocephalic Eye exam: PRESENT: conjunctiva pink, EOMI, PERRLA. ABSENT: scleral icterus Ear exam: PRESENT: normal external ear exam Mouth exam: PRESENT: moist, tongue midline Neck exam: ABSENT: carotid bruit, JVD, lymphadenopathy, thyromegaly Respiratory exam: PRESENT: clear to auscultation ayush, symmetrical, unlabored. ABSENT: rales, rhonchi, wheezes Cardiovascular exam: PRESENT: RRR, +S1, +S2. ABSENT: diastolic murmur, rubs, systolic murmur Pulses: PRESENT: normal dorsalis pedis pul Vascular exam: PRESENT: normal capillary refill GI/Abdominal exam: PRESENT: normal bowel sounds, soft, tenderness - Epigastric; improved per patient report. ABSENT: distended, guarding, mass, organolmegaly, rebound Rectal exam: PRESENT: deferred Extremities exam: PRESENT: full ROM. ABSENT: calf tenderness, clubbing, pedal edema Neurological exam: PRESENT: alert, awake, oriented to person, oriented to place , oriented to time, oriented to situation, CN II-XII grossly intact. ABSENT: motor sensory deficit Psychiatric exam: PRESENT: appropriate affect, normal mood. ABSENT: homicidal ideation, suicidal ideation Skin exam: PRESENT: dry, intact, warm. ABSENT: cyanosis, rash Results Laboratory Results: 03/07/18 04:03 03/07/18 04:03 03/07/18 03/07/18 04:03 04:03 WBC 12.2 H RBC 4.33 L Hgb 13.4 L Hct 38.8 MCV 90 MCH 31.0 MCHC 34.6 RDW 12.9 Plt Count 196 Sodium 134.9 L Potassium 4.0 Chloride 102 Carbon Dioxide 22 Anion Gap 11 BUN 7 Creatinine 0.59 Est GFR ( Amer) > 60 Est GFR (Non-Af Amer) > 60 Glucose 81 Calcium 8.3 L Lipase 1900.3 H Impressions: Abdomen Ultrasound 03/05/18 14:12 IMPRESSION: LIMITED STUDY. PANCREAS NOT ADEQUATELY VISUALIZED. DIFFUSE FATTY INFILTRATION OF THE LIVER. NO OTHER SIGNIFICANT FINDINGS. Assessment & Plan - Diagnosis (1) Pancreatitis, alcoholic, acute Qualifiers: Acute pancreatitis complication: unspecified Qualified Code(s): K85.20 - Alcohol induced acute pancreatitis without necrosis or infection Is this a current diagnosis for this admission?: Yes Plan: Improving. The patient is admitted with 3 days of epigastric abdominal pain relating to his back, worsened by p.o. intake, and associated with nausea and vomiting. Lipase trending down; 9889--> 5703--> 1900 WBCs trending down; 14.5--> 12.2 Abdominal ultrasound was negative for cholelithiasis but unable to visualize pancreas secondary to bowel gas pattern. Patient is admitted to the medical floor on continuous cardiac telemetry. Tolerating clear liquid diet; will advance as tolerated Transition to p.o. analgesics and antiemetics as needed. (2) Alcohol withdrawal Qualifiers: Complication of substance-induced condition: uncomplicated Qualified Code(s ): F10.230 - Alcohol dependence with withdrawal, uncomplicated Is this a current diagnosis for this admission?: Yes Plan: Improved. Last alcohol intake 03/04/18. No previous history of alcohol withdrawal or seizures. We will monitor on continuous cardiac telemetry. Scheduled Valium 2.5 mg p.o. every 6 hours; Ativan 2 mg IV as needed for anxiety , agitation, withdrawal symptoms. Banana bag nightly. Fall, seizure, aspiration precautions. (3) Hypertension Is this a current diagnosis for this admission?: Yes Plan: Secondary to alcohol withdrawal and pain. We will manage pancreatitis and alcohol withdrawal as above. IV hydralazine as needed for blood pressure control. (4) Nausea and vomiting Is this a current diagnosis for this admission?: Yes Plan: Resolved; now tolerating clear liquids. IV antiemetics as needed. (5) Abdominal pain Qualifiers: Abdominal location: epigastric Qualified Code(s): R10.13 - Epigastric pain Is this a current diagnosis for this admission?: Yes Plan: Improved. Secondary to acute alcoholic pancreatitis. P.o. oxycodone 5-10 mg per pain scale; IV Toradol every 8 hours as needed. IV morphine for breakthrough pain only. (6) Continuous tobacco abuse Is this a current diagnosis for this admission?: Yes Plan: Smoking cessation is encouraged; nicotine replacement therapy is provided. (7) Alcohol abuse Is this a current diagnosis for this admission?: Yes Plan: The patient endorses drinking at least a 12 pack of beer daily. He does express a desire to obtain sobriety. We will ask the business continuity planner to assess needs and provide the patient with community resources. (8) Tick bite of abdomen Qualifiers: Encounter type: initial encounter Qualified Code(s): S30.861A - Insect bite (nonvenomous) of abdominal wall, initial encounter; W57.XXXA - Bitten or stung by nonvenomous insect and other nonvenomous arthropods, initial encounter ; W57.XXXA - Bitten or stung by nonvenomous insect and other nonvenomous arthropods, initial encounter Is this a current diagnosis for this admission?: Yes Plan: Doxycycline IV twice daily while npo secondary to GI upset with po doxycyclin. Will need 14 days of abx treatment. - Time Time Spent with patient: 15-24 minutes Medications reviewed and adjusted accordingly: Yes Anticipated discharge: Home Within: within 24 hours
[2018-03-07] MEDS: NORMAL SALINE 1000 ML 1,000 ML with POTASSIUM CHLORIDE 20 MEQ, MAGNESIUM SULFATE 8 MEQ,... IV SCH ×5 (21:54)
[2018-03-08] MEDS: OXYCODONE HCL IR 5 MG TABLET PO PRN ×2 (01:55→06:35)
[2018-03-08] MEDS: HEPARIN SOD (PORCINE) 5,000 UNIT/ML 1 ML SYRINGE SUBCUT SCH (06:35)
[2018-03-08 06:57] LABS: HEMATOCRIT 38.3 % (37.9-51.0); HEMOGLOBIN 13.2 g/dL (13.5-17.0); MEAN CORPUSCULAR HEMOGLOBIN 30.6 pg (27.0-33.4); MEAN CORPUSCULAR HGB CONC 34.5 g/dL (32.0-36.0); MEAN CORPUSCULAR VOLUME 89 fl (80-97); PLATELET COUNT 232 10^3/uL (150-450); RED BLOOD COUNT 4.31 10^6/uL (4.35-5.55); RED CELL DISTRIBUTION WIDTH 12.9 % (11.5-14.0); WHITE BLOOD COUNT 10.5 10^3/uL (4.0-10.5)
[2018-03-08] MEDS: DIAZEPAM 5 MG TABLET PO SCH (07:06)
[2018-03-08 08:36] VITALS: BP 142/80
[2018-03-08] MEDS: PANTOPRAZOLE SODIUM 40 MG VIAL IV SCH (09:43)
[2018-03-08] MEDS: NICOTINE 14 MG/24 HR PATCH.TD24 TD SCH (09:43)
[2018-03-08] MEDS: DOXYCYCLINE HYCLATE 100 MG in DEXTROSE 5%-WATER 250 ML IV SCH (09:44)
[2018-03-08] MEDS ORDERED: DIAZEPAM 5 MG TABLET PO SCH (12:00)
--- NOTE | 2018-03-11 11:05 | PDOC DISCHARGE SUMMARY ---
General - Admit/Disc Date/PCP Admission Date/Primary Care Provider: 03/05/18 17:27 Discharge Date: 03/08/18 - Discharge Diagnosis (1) Pancreatitis, alcoholic, acute Is this a current diagnosis for this admission?: Yes (2) Alcohol withdrawal Is this a current diagnosis for this admission?: Yes (3) Hypertension Is this a current diagnosis for this admission?: Yes (4) Nausea and vomiting Is this a current diagnosis for this admission?: Yes (5) Abdominal pain Is this a current diagnosis for this admission?: Yes (6) Continuous tobacco abuse Is this a current diagnosis for this admission?: Yes (7) Alcohol abuse Is this a current diagnosis for this admission?: Yes (8) Tick bite of abdomen Is this a current diagnosis for this admission?: Yes - Additional Information Resuscitation Status: Full Code Discharge Diet: As Tolerated, Other (Comments) Discharge Activity: Activity As Tolerated Prescriptions: Diazepam [Valium] 1 mg PO Q8HP PRN #6 tablet PRN Reason: Anxiety/Agitation Doxycycline Hyclate 300 mg PO BID #24 tablet Folic Acid 1 mg PO DAILY #30 tablet Nicotine [Nicoderm 14 mg/24 Hr Transdermal Patch] 1 each TD DAILY #30 patch.td24 Ondansetron [Zofran Odt 4 mg Tablet] 4 mg PO Q4HP PRN #30 tab.rapdis PRN Reason: Oxycodone HCl [Oxy-Ir 5 mg Tablet] 5 mg PO Q4HP PRN #20 tablet PRN Reason: Thiamine HCl [Thiamine 100 mg Tablet] 100 mg PO DAILY #30 tablet Home Medications: Acetaminophen [Tylenol 325 mg Tablet] 650 mg PO Q4HP PRN tablet 03/08/18 Diazepam [Valium] 1 mg PO Q8HP PRN #6 tablet 03/08/18 Doxycycline Hyclate 300 mg PO BID #24 tablet 03/08/18 Folic Acid 1 mg PO DAILY #30 tablet 03/08/18 Nicotine [Nicoderm 14 mg/24 Hr Transdermal Patch] 1 each TD DAILY #30 patch.td24 03/08/18 Ondansetron [Zofran Odt 4 mg Tablet] 4 mg PO Q4HP PRN #30 tab.rapdis 03/08/18 Oxycodone HCl [Oxy-Ir 5 mg Tablet] 5 mg PO Q4HP PRN #20 tablet 03/08/18 Thiamine HCl [Thiamine 100 mg Tablet] 100 mg PO DAILY #30 tablet 03/08/18 History of Present Illness History of Present Illness: QUINTIN COLEMAN II is a 27 year old male with no significant past medical history who presented to the emergency department today with a complaint of 3 days of epigastric abdominal pain that worsens with p.o. intake and intractable nausea and vomiting (7 episodes of emesis today). The patient reports that he is a heavy alcohol drinker; minimum 12 pack of beer daily, with last alcohol intake being half his normal daily use yesterday evening. He denies fever, chills, chest pain, palpitations, diarrhea. He does endorse dyspnea related to increased abdominal pain. Evaluation in the emergency department revealed leukocytosis (WBCs 13 K), elevated lipase (>9k), serum alcohol <10, and abdominal ultrasound which revealed fatty liver infiltration, was negative for cholelithiasis, but was unable to visualize the pancreas secondary to air in bowels. The patient is noted to be hypertensive and tremulous. He is referred to the hospitalist service for admission and management of alcoholic pancreatitis and withdrawal. Hospital Course Hospital Course: The patient was admitted with alcoholic pancreatitis to the medical floor oncontinuous cardiac telemetry. He was initially placed in npo status and provided aggressive IVF. His Lipase trended down with rapid resolution of his nausea and vomiting. He was provided IV analgesics and as his need for pain medications decreased, he was advanced to a clear liquid diet which he tolerated well. He was transitioned to po oxycodone and advanced to a BRAT diet. He did not develop worsening symptoms and his a.m lab work reflected continued decrease in lipase, nml LFTs, and resolution of leukocytosis. The patient did have significant hypertension; 150s/90s related to pain as well as alcohol withdrawal. He was provided hypertensives as necessary. He was NORMOtensive at discharge. The patient did experience alcohol withdrawal symptoms of hypertension, tachycardia, and diaphoresis. He was placed on scheduled valium with IV ativan as needed to manage symptoms. His benzodiazepines were gradually weaned without difficulty. The patient expressed concern with regard to a rash to his abdomen that has been pressent for approximately 3 weeks following removal of an embedded tick. He was empirically started on doxycycline and provided a prescription at discharge to complete course of therapy. Both smoking and alcohol cessation were strongly encouraged. He was provided a Nicoderm prescription and contact information for [facility] and [facility] prior to discharge. At time of discharge, the patient is in stable condition, pain free, and tolerating a BRAT diet. He is advised to follow up with his primary care provider within 1 week. Physical Exam Vital Signs: Temp Pulse Resp BP Pulse Ox 97.8 F 115 H 16 142/80 H 98 03/08/18 11:49 03/08/18 11:49 03/08/18 11:49 03/08/18 11:49 03/08/18 11:49 General appearance: PRESENT: no acute distress, well-developed, well-nourished, other - overweight Head exam: PRESENT: atraumatic, normocephalic Eye exam: PRESENT: conjunctiva pink, EOMI, PERRLA. ABSENT: scleral icterus Ear exam: PRESENT: normal external ear exam Mouth exam: PRESENT: moist, tongue midline Neck exam: ABSENT: carotid bruit, JVD, lymphadenopathy, thyromegaly Respiratory exam: PRESENT: clear to auscultation ayush. ABSENT: rales, rhonchi, wheezes Cardiovascular exam: PRESENT: RRR. ABSENT: diastolic murmur, rubs, systolic murmur Pulses: PRESENT: normal dorsalis pedis pul Vascular exam: PRESENT: normal capillary refill GI/Abdominal exam: PRESENT: normal bowel sounds, soft, tenderness - Epigastric; intermittent mild discomfort. ABSENT: distended, guarding, mass, organolmegaly , rebound Rectal exam: PRESENT: deferred Extremities exam: PRESENT: full ROM. ABSENT: calf tenderness, clubbing, pedal edema Neurological exam: PRESENT: alert, awake, oriented to person, oriented to place , oriented to time, oriented to situation, CN II-XII grossly intact. ABSENT: motor sensory deficit Psychiatric exam: PRESENT: appropriate affect, normal mood. ABSENT: homicidal ideation, suicidal ideation Skin exam: PRESENT: dry, intact, warm. ABSENT: cyanosis, rash Results Laboratory Results: 03/08/18 06:48 03/07/18 04:03 Impressions: Abdomen Ultrasound 03/05/18 14:12 IMPRESSION: LIMITED STUDY. PANCREAS NOT ADEQUATELY VISUALIZED. DIFFUSE FATTY INFILTRATION OF THE LIVER. NO OTHER SIGNIFICANT FINDINGS. Qualifiers - * PATIENT BEING DISCHARGED WITH ANY OF THE FOLLOWING DIAGNOSIS: No Plan Discharge Plan: Discharge to home with self care. Follow up with Primary Care Provider within 1 week.
== END 2018-03-08 12:18 | disposition home or self-care (01) | DRG 439 ==
LOC: ER 11:20 → EH 17:27 → 5 18:30
PROVIDERS: ADMIT Internal Medicine; ATTEND Internal Medicine
DX: K85.20 Alcohol induced acute pancreatitis without necrosis or infection (principal); F10.239 Alcohol dependence with withdrawal, unspecified; I10 Essential (primary) hypertension; F12.10 Cannabis abuse, uncomplicated; S30.861A Insect bite (nonvenomous) of abdominal wall, initial encounter; F17.210 Nicotine dependence, cigarettes, uncomplicated; Y90.0 Blood alcohol level of less than 20 mg/100 ml; W57.XXXA Bitten or stung by nonvenomous insect and other nonvenomous arthropods, initial encounter; Y93.89 Activity, other specified; Y92.89 Other specified places as the place of occurrence of the external cause
CPT/HCPCS: 36415; 76705; 80048; 80053; 80307; 81001; 82962; 83036; 83690; 84478; 85025; 85027; 96361; 96374; 96375; 96376; 99285; J1170; J1644; J1885; J2060; J2765; J3411; J3475; J3480; J3490; J7030; J7060; S0119; S0164

== ENCOUNTER 2018-12-30 01:20 | Emergency (ER) | payer SELFPAY ==
[2018-12-30] MEDS ORDERED: KETOROLAC TROMETHAMINE 60 MG/2 ML SDV IM ONE (03:32)
[2018-12-30] MEDS ORDERED: CLINDAMYCIN HCL 150 MG CAPSULE PO ONE (03:32)
--- NOTE | 2018-12-30 03:35 | ER Document Report ---
ED General - General Chief Complaint: Toothache Stated Complaint: TOOTHACHE Time Seen by Provider: 12/30/18 02:21 Notes: Patient is a 28-year-old male, denies chronic medical problems, presents with 3 to 4 days of progressive worsening pain particularly to his right upper molar region. Describes it as a throbbing, severe, constant pain. Worsened by eating. Has not tried any for improvement of the pain. Has tried ibuprofen with some improvement of the pain. Symptoms have been worsening since onset. Denies any difficulty breathing or swallowing. Notes some mild facial swelling to the right upper facial region. Has not seen a dentist regarding his concerns. Denies fever or constitutional symptoms. No history of similar symptoms in the past. TRAVEL OUTSIDE OF THE [place] IN LAST 30 DAYS: No - Related Data Allergies/Adverse Reactions: No Known Allergies Allergy (Verified 03/05/18 11:22) Past Medical History - General Information source: Patient - Social History Smoking Status: Current Every Day Smoker Chew tobacco use (# tins/day): No Frequency of alcohol use: None Drug Abuse: None Lives with: Family Family History: DM, Hyperlipidemia, Hypertension, Malignancy Patient has suicidal ideation: No Patient has homicidal ideation: No Renal/ Medical History: Denies: Hx Peritoneal Dialysis Past Surgical History: Reports: Hx Herniorrhaphy - Immunizations Immunizations up to date: No Hx Diphtheria, Pertussis, Tetanus Vaccination: Yes Review of Systems - Review of Systems Notes: Constitutional: Negative for fever. HENT: Positive for dental pain Eyes: Negative for visual changes. Cardiovascular: Negative for chest pain. Respiratory: Negative for shortness of breath. Gastrointestinal: Negative for abdominal pain, vomiting or diarrhea. Genitourinary: Negative for dysuria. Musculoskeletal: Negative for back pain. Skin: Negative for rash. Neurological: Negative for headaches, weakness or numbness. 10 point ROS negative except as marked above and in HPI. Physical Exam - Vital signs Vitals: Temp Pulse Resp BP Pulse Ox 98.1 F 99 18 130/81 H 99 12/30/18 01:25 12/30/18 01:25 12/30/18 01:25 12/30/18 01:25 12/30/18 01:25 Interpretation: Normal Notes: PHYSICAL EXAMINATION: GENERAL: Well-appearing, well-nourished and in no acute distress. HEAD: Atraumatic, normocephalic. EYES: Pupils equal round and reactive to light, extraocular movements intact, sclera anicteric, conjunctiva are normal. ENT: nares patent, oropharynx clear without exudates. Moist mucous membranes. Diffusely poor dentition. All 4 wisdom teeth are coming in and appear cracked NECK: Normal range of motion, supple without lymphadenopathy LUNGS: Breath sounds clear to auscultation bilaterally and equal. No wheezes rales or rhonchi. HEART: Regular rate and rhythm without murmurs ABDOMEN: Soft, nontender, normoactive bowel sounds. No guarding, no rebound. No masses appreciated. EXTREMITIES: Normal range of motion, no pitting or edema. No cyanosis. NEUROLOGICAL: No focal neurological deficits. Moves all extremities spontaneously and on command. PSYCH: Normal mood, normal affect. SKIN: Warm, Dry, normal turgor, no rashes or lesions noted. Course - Re-evaluation Re-evalutation: 12/30/18 03:33 Presentation is most consistent with likely an infected tooth. Airway is patent. Vitals within normal limits. Patient is able swallow without any difficulty. There is no significant facial swelling. No evidence of Omkar angina, apical abscess, or airway obstruction. Patient will be started on antibiotics. I've instructed to follow-up with dentistry as earliest ability for definitive management. At this time will discharge with return precautions and follow-up recommendations. Verbal discharge instructions given a the bedside and opportunity for questions given. Medication warnings reviewed. Patient is in agreement with this plan and has verbalized understanding of retur n precautions and the need for primary care follow-up in the next 24-72 hours. - Vital Signs Vital signs: Temp Pulse Resp BP Pulse Ox 98.1 F 99 18 130/81 H 99 12/30/18 01:25 12/30/18 01:25 12/30/18 01:25 12/30/18 01:25 12/30/18 01:25 Discharge - Discharge Clinical Impression: Pain, dental Condition: Good Disposition: HOME, SELF-CARE Additional Instructions: You have been seen for dental pain. It is very important that you follow-up with a dentist for definitive care. Please return if you develop fever greater than 101, swelling in your face, vomiting, difficulty breathing or swallowing, or any other symptoms that are concerning to you. For your pain: Take ibuprofen 600 mg and acetaminophen 1000 mg every 6 hours together as needed for pain. Prescriptions: Clindamycin HCl 300 mg PO TID #30 capsule
[2018-12-30 04:23] VITALS: BP 136/70
== END 2018-12-30 04:20 | disposition home or self-care (01) ==
LOC: ER 01:20
DX: K08.9 Disorder of teeth and supporting structures, unspecified (principal); F17.200 Nicotine dependence, unspecified, uncomplicated
CPT/HCPCS: 99282; 96372; J1885

== ENCOUNTER 2019-02-21 00:26 | Emergency (ER) | payer SELFPAY ==
[2019-02-21 01:14] VITALS: BP 139/70
[2019-02-21] MEDS ORDERED: SULFAMETHOXAZOLE/TRIMETHOPRIM 800-160 MG TABLET PO ONE (03:54)
[2019-02-21] MEDS ORDERED: CETIRIZINE 10 MG TABLET PO ONE (03:54)
[2019-02-21] MEDS ORDERED: CEPHALEXIN 500 MG CAPSULE PO ONE (03:54)
--- NOTE | 2019-02-21 04:06 | ER Document Report ---
HPI - HPI Time Seen by Provider: 02/21/19 03:44 Pain Level: Denies Context: Patient is a 28-year-old male that comes to the emergency department for chief complaint of a red, irritated, itchy, slightly painful area over his left forearm. He states that he noticed it over the past day but it has become significantly more irritated throughout the day. He denies pain over the area at this time. He is up-to-date on his tetanus with 5 years. He denies history of diabetes. He reports remote history of IV drug abuse. He states he thinks he was bitten by something but he is not certain. He denies fever/chills, nausea/vomiting. Past Medical History - General Information source: Patient - Social History Smoking Status: Never Smoker Frequency of alcohol use: None Drug Abuse: Other - Former IV drug abuse, denies current drug abuse of any sort Lives with: Alone Family History: DM, Hyperlipidemia, Hypertension, Malignancy Patient has suicidal ideation: No Patient has homicidal ideation: No Renal/ Medical History: Denies: Hx Peritoneal Dialysis Past Surgical History: Reports: Hx Herniorrhaphy - Immunizations Immunizations up to date: No Hx Diphtheria, Pertussis, Tetanus Vaccination: Yes Vertical Provider Document - CONSTITUTIONAL General Appearance: WD/WN, No Apparent Distress - INFECTION CONTROL TRAVEL OUTSIDE OF THE [place] IN LAST 30 DAYS: No - HEENT HEENT: Atraumatic, Normocephalic - NECK Neck: Normal Inspection - RESPIRATORY Respiratory: Breath Sounds Normal, No Respiratory Distress - CARDIOVASCULAR Cardiovascular: Regular Rate, Regular Rhythm - GI/ABDOMEN Gastrointestinal: Abdomen Soft, Abdomen Non-Tender - BACK Back: Normal Inspection - MUSCULOSKELETAL/EXTREMETIES Musculoskeletal/Extremeties: MAEW, FROM, Non-Tender - NEURO Level of Consciousness: Awake, Alert, Appropriate Motor/Sensory: No Motor Deficit, No Sensory Deficit - DERM Integumentary: negative: Abscess - The left forearm has what appears to be an insect bite that has been scratched and then scabbed, there is no tenderness, induration, or fluctuance noted, however there is developing erythema around the area and the area is mildly warm to the touch. Normal wrist, elbow, hand, distal neurovascular exam. Course - Re-evaluation Re-evalutation: Appears to be a bug bite with patient scratching the area. Area is nontender but has started to become mildly erythematous and warm. Appears to be early cellulitis and possible localized inflammatory response. No evidence of abscess, no other concerning findings. Covering with Keflex, given antihistamines, discussed treatment, monitoring, follow-up, return precautions. Patient states understanding and agreement. - Vital Signs Vital signs: Temp Pulse Resp BP Pulse Ox 99.3 F 91 139/70 H 99 02/21/19 01:12 02/21/19 01:12 02/21/19 01:12 02/21/19 01:12 Discharge - Discharge Clinical Impression: Insect bite Qualifiers: Encounter type: initial encounter Site of insect bite: forearm Laterality: left Qualified Code(s): S50.862A - Insect bite (nonvenomous) of left forearm, initial encounter Condition: Stable Disposition: HOME, SELF-CARE Additional Instructions: Your evaluation is consistent with a localized inflammatory reaction and probably early cellulitis. I recommend the antihistamine, the antibiotics, elevation of the area. Keep the area clean with a clean dressing. Follow-up with primary care. Return if this worsens including spreading redness, swelling, fever/chills, or any other concerning symptoms. Prescriptions: Cephalexin Monohydrate [Keflex 500 mg Capsule] 500 mg PO QID #28 capsule Cetirizine HCl [All Day Allergy] 10 mg PO DAILY #30 capsule
== END 2019-02-21 04:33 | disposition home or self-care (01) ==
LOC: ER 00:26
DX: S50.862A Insect bite (nonvenomous) of left forearm, initial encounter (principal); L29.9 Pruritus, unspecified; W57.XXXA Bitten or stung by nonvenomous insect and other nonvenomous arthropods, initial encounter
CPT/HCPCS: 99281